=== PATIENT | female | born 1985 | race Caucasian/White ===

== ENCOUNTER 2019-10-28 13:19 | Emergency (ER) | payer SELFPAY ==
[2019-10-28 14:03] VITALS: BP 104/69
--- NOTE | 2019-10-28 14:17 | ER Document Report ---
HPI - HPI Time Seen by Provider: 10/28/19 14:11 Pain Level: 1 Context: Patient is a 34-year-old female presents emergency department with a chief complaint of dysuria and low back pain. Patient states that she has had her symptoms for the past month. Patient was placed on Macrobid and states that he got better, but ended up getting worse the next week. Patient also states that she took some Azo, which helped, but patient continues to have dysuria and foul-smelling urine. - ROS Systems Reviewed and Negative: Yes All other systems reviewed and negative - URINARY Urinary: REPORTS: Dysuria - REPRODUCTIVE Reproductive: DENIES: : - MUSCULOSKELETAL Musculoskeletal: REPORTS: Back Pain - low back - DERM Skin Color: Normal Skin Problems: None Past Medical History - General Information source: Patient - Social History Smoking Status: Never Smoker Chew tobacco use (# tins/day): No Frequency of alcohol use: None Drug Abuse: None Family History: Reviewed & Not Pertinent Renal/ Medical History: Reports: Hx Kidney Stones Past Surgical History: Reports: Hx Cholecystectomy, Hx Tonsillectomy Vertical Provider Document - CONSTITUTIONAL Agree With Documented VS: Yes Exam Limitations: No Limitations General Appearance: No Apparent Distress - HEENT HEENT: Atraumatic, Normocephalic, PERRLA - NECK Neck: Normal Inspection - RESPIRATORY Respiratory: No Respiratory Distress - CARDIOVASCULAR Cardiovascular: Regular Rate Pulses: Normal: Radial - GI/ABDOMEN Gastrointestinal: Abdomen Soft, Abdomen Non-Tender - MUSCULOSKELETAL/EXTREMETIES Musculoskeletal/Extremeties: FROM, Tender - lower back, No Edema - NEURO Level of Consciousness: Awake, Alert, Appropriate Motor/Sensory: No Motor Deficit, No Sensory Deficit - DERM Integumentary: Warm, Dry, No Rash Course - Re-evaluation Re-evalutation: 10/28/19 Patient presents with symptoms consistent with an acute cystitis. Vitals wnl. No history of fever, flank pain, or constitution symptoms to suggest ascending infection at this time. Patient is well in appearance, tolerating oral intake without difficulty. No focal abdominal tenderness to suggest acute appendicitis, biliary pathology, acute pancreatitis, tubo-ovarian abscesses, or pelvic inflammatory disease. Patient will be started on antibiotics at this time. A culture has been sent. They will be discharged with return precautions and follow-up recommendations. - Vital Signs Vital signs: Temp Pulse Resp BP Pulse Ox 98.9 F 81 16 104/69 98 10/28/19 14:01 10/28/19 14:01 10/28/19 14:01 10/28/19 14:01 10/28/19 14:01 Discharge - Discharge Clinical Impression: Urinary tract infection Qualifiers: Urinary tract infection type: acute cystitis Hematuria presence: with hematuria Qualified Code(s): N30.01 - Acute cystitis with hematuria Condition: Stable Disposition: HOME, SELF-CARE Instructions: Cephalexin ([facility]) Additional Instructions: Your urine shows findings consistent with a urinary tract infection. Please take all the antibiotics as directed even if your symptoms have improved. Please follow-up with your primary care physician as needed. Return to emergency room if you develop fever >101F, persistent vomiting, become lethargic, have severe pain in your sides, or any other symptoms that are concerning to you. Prescriptions: Cephalexin [Keflex] 500 mg PO BID #14 capsule Referrals: SAYRA COUGHLIN MD [NO LOCAL MD] - Follow up as needed
[2019-10-28 14:52] LABS: AMORPHOUS SEDIMENT,URINE TRACE /HPF; APPEARANCE,URINE CLOUDY; BILIRUBIN,URINE NEGATIVE (NEGATIVE); COLOR,URINE AMBER; GLUCOSE, URINE NEGATIVE (NEGATIVE); KETONES,URINE NEGATIVE (NEGATIVE); PROTEIN,URINE 30 mg/dL (NEGATIVE); URINE SPECIFIC GRAVITY 1.025
== END 2019-10-28 16:12 | disposition home or self-care (01) ==
LOC: ER 13:19
DX: N30.01 Acute cystitis with hematuria (principal); R30.0 Dysuria; M54.5 Low back pain; Z87.442 Personal history of urinary calculi
CPT/HCPCS: 81001; 87086; 87088; 87186; 99283